=== PATIENT | female | born 1940 | race Caucasian/White ===

== ENCOUNTER 2016-10-04 06:53 | Inpatient (IN) | payer MEDICARE, OTHER ==
--- NOTE | ~2016-10-04 | PRECARD ---
H&P [facility] [address] [facility] [place]. [address] NAME: YAIMA SOLOMON : 38 STATUS : ADM IN [facility]#: [id number] AGE: 76 ADM/REG DATE : 10/04/16 MR#: [id number] REPORT SERV DATE: 10/05/16 DICTATED BY: ELLIS HARRELL DATE: 10/04/16 REPORT STATUS : Draft TRANSCRIBED BY: ANNELIESE DATE: 10/04/16 DATE OF ADMISSION: 10/04/2016 CHIEF COMPLAINT: Chest pain. REASON FOR ADMISSION: Myocardial infarction. SOURCE: The patient and her chart. HISTORY OF PRESENT ILLNESS: Ms. Solomon is a very pleasant 76-year-old white woman, who has been seen by Dr. Tripp for chest pain. She had an abnormal thallium stress test and was scheduled for cardiac catheterization later today. This morning at about 4 a.m., she developed severe substernal chest pain, up 9/10 in severity, described as a crushing feeling, associated with nausea, vomiting and shortness of breath, but no diaphoresis. Her daughter called 911 about 6 a.m. EMS performed an EKG, which revealed anterior ST-segment elevation. Code STEMI was activated, and she was brought emergently to the cardiac catheterization laboratory. Upon arrival, she was still having chest pain. She had another episode of chest pain back in May. REVIEW OF SYSTEMS: All other systems are negative. ALLERGIES: IVP DYE, PENICILLIN, SULFA. MEDICATIONS: As per her home list included carvedilol. CARDIAC RISK FACTORS: Hypertension and tobacco. Denies diabetes, family history, or cholesterol. SOCIAL HISTORY: The patient lives in [place], [place]. Single. Two children, alive and well. She is retired. FAMILY HISTORY: Mother had myocardial infarction at age 69. 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 She had implants, at least five back surgeries, arthritis, cataract surgery, appendix removed. PHYSICAL EXAMINATION: GENERAL: She is an acutely and chronically ill-appearing, elderly white woman, currently having chest pain. VITAL SIGNS: Stable, grossly afebrile. HEENT: Sclerae anicteric. Lips without cyanosis. NECK: Carotids 2+ and symmetrical. No bruits. No JVD. No thyromegaly. LUNGS: Clear anteriorly. Increased E:I ratio. Diminished breath sounds throughout. Otherwise, clear to auscultation. H&P [address] [address] NAME: YAIMA SOLOMON : 38 STATUS : ADM IN PAT#: [id number] AGE: 76 ADM/REG DATE : 10/04/16 MR#: [id number] REPORT SERV DATE: 10/05/16 DICTATED BY: ELLIS HARRELL DATE: 10/04/16 REPORT STATUS : Draft TRANSCRIBED BY: ANNELIESE DATE: 10/04/16 HEART: Regular rate and rhythm without murmur, gallop, or rub. ABDOMEN: Positive bowel sounds. Soft and nontender. Healed surgical scars. EXTREMITIES: Pulses 2+ and symmetrical. No cyanosis, clubbing, or edema. BACK: No CVA tenderness. MUSCULOSKELETAL: Good tone. NEURO: Alert and oriented x3. IMAGING DATA: EKG reveals acute anterior myocardial infarction, sinus rhythm. LABORATORY DATA: Not yet available. IMPRESSION: 1. Acute anterior myocardial infarction, onset 4 a.m. by history, Killip class I. 2. Abnormal thallium, scheduled for elective catheterization later today. 3. Chronic obstructive pulmonary disease. 4. Tobacco abuse. 5. Hypertension. RECOMMENDATIONS: 1. Emergent cardiac catheterization and possible angioplasty already done, see report. 2. Aspirin and Brilinta for least one year and aspirin indefinitely. 3. Beta-blockers. 4. NAZARIO inhibitors later. 5. Check fasting lipid profile, empiric statin therapy. 6. Quit smoking, the patient counseled. 7. Further recommendations following the above complete database. SHEA/ANNELIESE Ellis Harrell M.D. / [id number] CC: Miquel Thomas MD
[~2016-10-04 06:53] MED LIST: COREG3 PO; LOTE20 PO; NITROSTAT0.4 MG SL; NORV25 PO; SOMATAB PO; T3 PO; V5 PO
[2016-10-04 07:32] LABS: BASOPHILS 0.3 %; BASOPHILS ABSOLUTE 0.02 10/3/uL (0.0-0.16); EOSINOPHILS 0 %; HEMATOCRIT 46.6 % (36.0-48.0); HEMOGLOBIN 15.6 g/dL (12.0-16.0); IMMATURE GRANULOCYTES 0.3 %; IMMATURE GRANULOCYTES ABSOLUTE 0.02 10/3/uL (0.0-0.11); LYMPHOCYTES ABSOLUTE 1.21 10/3/uL (0.67-4.30); MANUAL DIFF NO %; MEAN CORPUS HGB CONC 33.5 g/dL (32.0-36.0); MEAN CORPUSCULAR HEMOGLOB 33.3 pg (26.0-34.0); MEAN CORPUSCULAR VOLUME 99.4 fL (80-100); MEAN PLATELET VOLUME 8.8 fL (9.2-13.0); MONOCYTES ABSOLUTE 0.38 10/3/uL (0.21-1.20); NEUTROPHILS 78.4 %; NEUTROPHILS ABSOLUTE 5.94 10/3/uL (2.02-8.40); PLATELET COUNT 250 10/3/uL (150-400); RBC DISTRIBUTION WIDTH 14.4 % (12.0-16.0); RED CELL COUNT 4.69 10/6/uL (4.0-5.6); WHITE BLOOD CELLS 7.6 10/3/uL (4.5-10.5)
[2016-10-04 07:37] LABS: INTERNATIONAL NORMAL RATI 1.1 UNITS (-); PARTIAL THROMBO TIME 30.6 SEC (22.5-37.2); PROTIME (NOT ORD) 13.8 SEC (12.0-14.5)
[2016-10-04 07:45] LABS: BUN (BLOOD UREA NITROGEN) 13 MG/DL (6-23); CALCIUM, SERUM 8.7 MG/DL (8.5-10.4); CHLORIDE, SERUM 106 MMOL/L (96-112); CO2 (CARBON DIOXIDE) 23 MMOL/L (24-34); CREATININE 0.94 MG/DL (0.55-1.02); GFR AFRICAN AMERICAN 68 ML/MIN (>=60); GFR NON AFRICAN AMERICAN 59 ML/MIN (>=60); GLUCOSE, SERUM 147 MG/DL (60-99); POTASSIUM, SERUM 3.9 MMOL/L (3.5-5.3); SODIUM, SERUM 141 MMOL/L (135-148)
[2016-10-04 07:46] LABS: CHEST PAIN PROFILE TAT 0 Hrs 21 Mins
[2016-10-04 09:18] LABS: CREATININE 0.7 MG/DL (0.55-1.02)
[2016-10-04 16:37] LABS: CK-MB 159.4 NG/ML
[2016-10-04 16:38] LABS: CKMB INDEX (NOT ORD) 13.8
[2016-10-05 00:13] LABS: CKMB INDEX (NOT ORD) 13.4
[2016-10-05 00:32] LABS: TROPONIN I 29.5 NG/ML (<0.05)
[2016-10-05 04:05] LABS: BASOPHILS 0.2 %; BASOPHILS ABSOLUTE 0.03 10/3/uL (0.0-0.16); EOSINOPHILS 0.2 %; EOSINOPHILS ABSOLUTE 0.03 10/3/uL (0.0-0.53); HEMATOCRIT 45.9 % (36.0-48.0); HEMOGLOBIN 14.9 g/dL (12.0-16.0); IMMATURE GRANULOCYTES 0.2 %; IMMATURE GRANULOCYTES ABSOLUTE 0.03 10/3/uL (0.0-0.11); LYMPHOCYTES 18.5 %; LYMPHOCYTES ABSOLUTE 2.22 10/3/uL (0.67-4.30); MEAN CORPUS HGB CONC 32.5 g/dL (32.0-36.0); MEAN CORPUSCULAR HEMOGLOB 31.9 pg (26.0-34.0); MEAN CORPUSCULAR VOLUME 98.3 fL (80-100); MEAN PLATELET VOLUME 9.1 fL (9.2-13.0); MONOCYTES ABSOLUTE 0.96 10/3/uL (0.21-1.20); NEUTROPHILS 72.9 %; NEUTROPHILS ABSOLUTE 8.75 10/3/uL (2.02-8.40); PLATELET COUNT 239 10/3/uL (150-400); RBC DISTRIBUTION WIDTH 14.7 % (12.0-16.0); RED CELL COUNT 4.67 10/6/uL (4.0-5.6)
[2016-10-05 04:06] LABS: MANUAL DIFF NO %
[2016-10-05 04:24] LABS: CALCIUM, SERUM 9.2 MG/DL (8.5-10.4); CHLORIDE, SERUM 105 MMOL/L (96-112); CHOL/HDL RATIO(NOT ORDER) 2.7 (0-5); CHOLESTEROL 178 MG/DL (< 200); CO2 (CARBON DIOXIDE) 25 MMOL/L (24-34); CREATININE 1.01 MG/DL (0.55-1.02); GFR AFRICAN AMERICAN 62 ML/MIN (>=60); GFR NON AFRICAN AMERICAN 54 ML/MIN (>=60); HDL CHOLESTEROL 65 MG/DL (> 49); LDL CHOLESTEROL 89 MG/DL (< 130); NON-HDL CHOLESTEROL 113 MG/DL (< 160); POTASSIUM, SERUM 3.7 MMOL/L (3.5-5.3); SODIUM, SERUM 140 MMOL/L (135-148); TRIGLYCERIDE 121 MG/DL (< 150)
[2016-10-05 04:25] LABS: BUN (BLOOD UREA NITROGEN) 19 MG/DL (6-23); GLUCOSE, SERUM 100 MG/DL (60-99)
[2016-10-05 09:49] LABS: CK-MB 31.6 NG/ML; CKMB INDEX (NOT ORD) 8.3
[2016-10-06 06:27] LABS: BUN (BLOOD UREA NITROGEN) 15 MG/DL (6-23); CHLORIDE, SERUM 105 MMOL/L (96-112); CO2 (CARBON DIOXIDE) 25 MMOL/L (24-34); GFR AFRICAN AMERICAN 82 ML/MIN (>=60); GFR NON AFRICAN AMERICAN 71 ML/MIN (>=60); GLUCOSE, SERUM 96 MG/DL (60-99); POTASSIUM, SERUM 3.7 MMOL/L (3.5-5.3); SODIUM, SERUM 141 MMOL/L (135-148)
[2016-10-06] MEDS ORDERED: ASAB PO (08:37)
[2016-10-06] MEDS ORDERED: LIPITOR40 PO (08:38)
[2016-10-06] MEDS ORDERED: BRILINTA90 MG PO (08:39)
[2016-10-06] MEDS ORDERED: PRIN2.5 PO (08:39)
[2016-10-06] MEDS ORDERED: COREG6 PO (08:41)
== END 2016-10-06 10:45 | disposition home or self-care (01) | DRG 247 ==
LOC: SSU2 06:53 → CCU 08:35 → 7NO 10-05 16:02
PROVIDERS: Internal Medicine Cardiovascular Disease
PROC: 4A023N7 Measurement of Cardiac Sampling and Pressure, Left Heart, Percutaneous Approach (ICD-10-PCS; principal; 2016-10-04)
PROC: 027034Z Dilation of Coronary Artery, One Artery with Drug-eluting Intraluminal Device, Percutaneous Approach (ICD-10-PCS; 2016-10-04)
PROC: B2111ZZ Fluoroscopy of Multiple Coronary Arteries using Low Osmolar Contrast (ICD-10-PCS; 2016-10-04)
PROC: B2151ZZ Fluoroscopy of Left Heart using Low Osmolar Contrast (ICD-10-PCS; 2016-10-04)
DX: I21.09 ST elevation (STEMI) myocardial infarction involving other coronary artery of anterior wall (principal); J44.9 Chronic obstructive pulmonary disease, unspecified; F17.210 Nicotine dependence, cigarettes, uncomplicated; I10 Essential (primary) hypertension; Z88.0 Allergy status to penicillin; Z88.2 Allergy status to sulfonamides
CPT/HCPCS: 71010; 80048; 80061; 82550; 82553; 83735; 84132; 84295; 84484; 85025; 85347; 85610; 85730; 87641; 93005; 93458; 99152; 99153; A9270-GY; C1725; C1760; C1769; C1874; C1887; C9606; J1200; J2250; J2930; J3010; Q9967